=== PATIENT | male | born 1965 | race Caucasian/White ===

== ENCOUNTER 2017-07-19 16:47 | Emergency (ER) | payer OTHER, SELFPAY ==
[2017-07-19 16:48] VITALS: BP 140/111; PULSE 98; RESP 18; TEMP 36.6; O2SAT 98; BMI 40.6
--- NOTE | 2017-07-19 17:08 | RAD_ITS ---
STUDY: X-RAY - RIGHT SHOULDER REASON FOR EXAM: Male, 51 years old. Anterior shoulder pain after fall. Limited range of motion. TECHNIQUE: 4 view(s) of the shoulder. COMPARISON: None. FINDINGS: There is mild arthrosis of the glenohumeral and acromioclavicular joints. Normal acromion. There is a bone island in the humeral head. The soft tissue structures are unremarkable. Normal visualized pulmonary apex. RAD/Shoulder min 2 Views IMPRESSION: Osteoarthritic changes. No acute pathology. Electronically Signed: Simon Pablo MD at 17:23 EST , Service support ,
--- NOTE | 2017-07-19 18:11 | ED.DCSUM_ITS ---
- ER Visit Summary Date of Service: 07/19/17 Chief Complaint: Fall and right shoulder pain History of Present Illness: The patient is a [address] Antoine and Dr. Noel. He reports that this morning he slipped and fell backwards. He hit his right elbow on the ground. Ports that he has pain in his right shoulder that is 8 out of 10 at rest and 9 out of 10 with any movement. He denies any numbness or weakness distally. He is right-hand dominant. He denies blow to the head or loss of consciousness. He is not on blood thinners. No neck, back, wrist, or hip pain. Physical Examination: Vitals: Stable. Afebrile. Neck: No vertebral tenderness. Full ROM without difficulty. Cleared by NEXUS criteria. Back: No vertebral tenderness. General: A&O x 3. NAD. Cardiovascular exam: Regular rate and rhythm, no murmur, rub or gallop. Respiratory exam: Chest nontender. No crepitus. Clear to auscultation bilaterally. No wheezes or stridor. Abdominal exam: Soft, nontender, nondistended, normal bowel sounds. No pain in RUQ or LUQ specifically. No peritoneal signs. Extremity: Moderate tenderness palpation over the anterior portion of his right deltoid. Severe pain with abduction of his arm active greater than passive. He is neurovascular intact distal this with normal sensation light touch and less than 2 second capillary refill. Test Results: X-ray was negative. Emergency Department Course and Treatment: She was placed in a sling and treated with Elizabeth. Treatment Plan: He will be discharged instructions to follow-up with Dr. Noel in 1 week if not improving. He will be given a prescription for Elizabeth. I did have the discussion with him about the possibility of an injury to his rotator cuff. Disposition: To home in improved and stable condition. Impression: 1. Fall. 2. Right shoulder pain. This note was generated with Headroom dictation software. It may contain incorrect words, spelling, and punctuation that were not noted in review of the chart prior to signing ED Disposition - Plan for ED Patient: Disposition: Home or Assisted Living Chief Complaint: Upper Extremity Injury Instructions: ED Shoulder Pain [facility] Prescriptions: Hydrocodone Bitart/Apap 5-325 [Elizabeth 5/325] 1 - 2 tablet PO Q4H PRN PRN 4 Days # 20 tablet PRN Reason: Pain Referrals: Pieter Samuel MD [STAFF PHYSICIAN] - 1 Week if not improving
[2017-07-19] MEDS: HYDROcodone Bitartrate/Apap 5/325 Tablet PO (18:24)
[2017-07-19 18:30] VITALS: BP 157/103; PULSE 97; RESP 14; O2SAT 97
--- NOTE | 2017-07-19 18:31 | ED.RN ---
PT GIVEN WRITTEN AND VERBAL DISCHARGE INSTRUCTIONS WELL HOME GOING PRESCRIPTIONS. THIS RN APPLIED SLING TO PT RIGHT ARM. ICE PACK GIVEN. PT INSTRUCTED ON SLING AND CORRECT USE AND FIT OF SLING. PT EDUCATED NOT TO DRIVE AFTER HAVING [facility]. AMBULATORY HOME WITH NO ASSITANCE FROM STAFF. MOTHER DRIVING HOME.
== END 2017-07-19 18:34 | disposition home or self-care (01) ==
LOC: ED 17:22
PROVIDERS: Emergency Provider Emergency Medicine
DX: M25.511 Pain in right shoulder (principal); W01.0XXA Fall on same level from slipping, tripping and stumbling without subsequent striking against object, initial encounter; Y93.9 Activity, unspecified; Y92.9 Unspecified place or not applicable; Z86.718 Personal history of other venous thrombosis and embolism; Z90.49 Acquired absence of other specified parts of digestive tract; Z79.82 Long term (current) use of aspirin; Z79.84 Long term (current) use of oral hypoglycemic drugs; Z79.899 Other long term (current) drug therapy
CPT/HCPCS: 73030; 99283

== ENCOUNTER → 2017-08-27 16:32 | Outpatient (CLI) | payer OTHER, SELFPAY ==
--- NOTE | 2017-08-27 16:49 | EKG12_ITS ---
Test Reason : PRE OP Blood Pressure : / mmHG Vent. Rate : 100 BPM Atrial Rate : 100 BPM P-R Int : 128 ms QRS Dur : 076 ms QT Int : 324 ms P-R-T Axes : 066 081 045 degrees QTc Int : 417 ms Normal sinus rhythm Normal ECG Confirmed by BETO LEON ([id number]), technical writer and editor FAY MERCEDES ([id number]) on 08/30/2017 1:58:35 PM Referred By: Randy Storey Confirmed By:BETO LEON
[2017-08-27 17:08] LABS: Hematocrit 43.3 % (40-54); Hemoglobin 14.4 g/dl (13.0-16.5); Mean Corp Hgb Conc 33.3 g/gl (32-36); Mean Corpuscular Hgb 29.2 pg (27.0-32.0); Mean Corpuscular Volume 87.8 fL (80-94); Mean Platelet Vol. 10.6 fl (6.2-12.0); Platelet Count 194 K/mm3 (150-450); RBC Distribution Width CV 13.8 % (11.6-14.6); RBC Distribution Width SD 44.1 fl (35.1-43.9); Red Blood Count 4.93 M/mm3 (4.6-6.2); White Blood Count 4.7 K/mm3 (4.4-11.0)
[2017-08-27 17:19] LABS: Anion Gap 8 (5-15); BUN 26 mg/dL (7-18); BUN/Creat Ratio 15.7 RATIO (10-20); Chloride 106 mmol/L (98-107); Creatinine, Serum 1.66 mg/dL (0.70-1.30); EST Glomerular Filtration Rate 46 mL/min (>60); Est Glom Filt Rate - Afr Amer 56 mL/min (>60); Glucose 223 mg/dL (74-106); Potassium 4.9 mmol/L (3.5-5.1); Sodium Level 139 mmol/L (136-145)
[2017-08-27 17:30] LABS: Scan Indicated on CBC? Y/N NO
== END ==
PROVIDERS: Visit Provider Orthopaedic Surgery
DX: Z01.810 Encounter for preprocedural cardiovascular examination (principal); Z01.818 Encounter for other preprocedural examination
CPT/HCPCS: 36415; 80048; 85027; 93005

== ENCOUNTER 2018-02-24 17:30 | Outpatient (RCR) | payer OTHER, SELFPAY ==
--- NOTE | 2017-12-16 13:53 | HP.PTREVAL_ITS ---
Randy Storey, DO, It has been my pleasure to treat CARLOS A PATTERSON over the last 1 visits for R rot cuff repair. Please see the progress note below for an update on the physical therapy plan of care! Plan Plan: Follow protocal for rot cuff repair Goals Goal 1:: Decrease R shoulder pain x 50% to aid with sleep Goal Time Frame: 4-6 Weeks Goal 2:: Increase R shoulder flex and abd ROM x 50 degrees to aid with overhead lifting Goal Time Frame: 4-6 Weeks Goal 3:: Increase R shoulder MMT x 2 grades to aid in RTW Goal Time Frame: 4-6 Weeks Goal 4:: I with HEP Goal Time Frame: 4-6 Weeks Anticipated Interventions Patient/Client Instruction: Educate patient on: Condition, Plan of Care For the Purpose of:: To improve self management Therapeutic Exercise to Include: Strength training, Endurance training, Body mechanics, Flexibilty training, Passive ROM, Active ROM, Scapular Strength/ Stabilization For the Purpose of:: To decrease pain, To increase ROM, To improve muscle performance and motor function Cryotherapy (ice pack, ice massage): Yes For the Purpose of:: To decrease pain Please do not hesitate to contact me at [phone] by phone or Fax: if you have questions or concerns regarding this new plan of care! Sincerely, Alpesh Rose, PT,
--- NOTE | 2018-02-24 17:51 | HP.PTDCSUM ---
HP - PT D/C Summary It has been my pleasure to treat CARLOS A PATTERSON under orders from Randy Storey DO, for the diagnosis of R rot cuff repair for a total of 20 visit(s). Discharge Date: Please see the following information for a summary of their discharge status. - Subjective Subjective: Pt reports his pain keeps gettting worse since he had a hard day of work 2 fridays ago. - Pain R shoulder Pain Intensity (Out of 10): 6 - Objective Objective/Function: R shoulder ROM: flex= 115, abd= 100, ER= 40, IR moderately limited. R shoulder MMT: 3-/5 throughout. R shoulder pain /10. Pt is not progressing well toward Rx goals - Goals Goal 1:: Decrease R shoulder pain x 50% to aid with sleep Goal Progress: Not Progressing Goal 2:: Increase R shoulder flex and abd ROM x 50 degrees to aid with overhead lifting Goal Progress: Not Progressing Goal 3:: Increase R shoulder MMT x 2 grades to aid in RTW Goal Progress: Not Progressing Goal 4:: I with HEP Goal Progress: Goal Met - Plan Plan: Discontinue , RTD - D/C Information If there are questions or concerns regarding this patient's physical therapy, please feel free to call me at [phone]. Thank you for the referral of this patient. Sincerely, Alpesh Rose, PT,
== END 2018-02-24 19:00 | disposition home or self-care (01) ==
LOC: PT 17:30
PROVIDERS: Visit Provider Orthopaedic Surgery
DX: S46.011D Strain of muscle(s) and tendon(s) of the rotator cuff of right shoulder, subsequent encounter (principal); M19.011 Primary osteoarthritis, right shoulder
CPT/HCPCS: 97014; 97110; 97140; 97161; 97530; G0283